=== PATIENT | male | born 1985 | race Caucasian/White ===

== ENCOUNTER 2023-07-22 08:38 | Outpatient (CLI) | payer OTHER, SELFPAY | END 2023-07-22 08:39 | disposition home or self-care (01) | LOC: NFLDREF 08:42 | PROVIDERS: PCP Internal Medicine; Visit Provider Internal Medicine | DX: R10.11 Right upper quadrant pain (principal) | CPT/HCPCS: 80053 ==

== ENCOUNTER 2023-08-11 09:54 | Outpatient (CLI) | payer OTHER, SELFPAY ==
--- NOTE | 2023-08-11 10:15 | CRLHL7_ITS ---
For Patients: As a result of the Century Cures Act, medical imaging exams and procedure reports are released immediately into your electronic medical record. You may view this report before your referring provider. If you have questions, please contact your health care provider. INDICATION: Unspecified abdominal pain TECHNIQUE: Ultrasound abdomen limited. Sonographic images of the right upper quadrant were obtained using lora-scale and color Doppler images. COMPARISON: None FINDINGS: Liver: Normal in size and echotexture. Several hyperechoic masses within the liver. Largest is in the right hepatic lobe and measures 3.6 cm in diameter. 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 However, the largest mass has a subtle hypoechoic halo on a couple of the images rendering it indeterminate. No intrahepatic bile duct dilation. Gallbladder: No stones or sludge. Normal wall thickness. No pericholecystic fluid. Common bile duct: 4 mm. Pancreas: Normal. Right kidney: Normal in size. Normal echotexture and cortex. No suspicious masses, stones, or hydronephrosis. Vasculature: Proximal abdominal aorta and IVC are normal. IMPRESSION: 1. Multiple echogenic masses in the liver, likely benign, however the largest is technically indeterminate. Liver MRI recommended. 2. No cause for abdominal pain identified. Dictated by Bruno Casey MD @ 08/12/2023 9:17:21 AM (Electronically Signed)
== END 2023-08-11 09:55 | disposition home or self-care (01) ==
LOC: US 09:54
PROVIDERS: PCP Internal Medicine; Visit Provider Internal Medicine
DX: R10.9 Unspecified abdominal pain (principal); R16.0 Hepatomegaly, not elsewhere classified
CPT/HCPCS: 76705

== ENCOUNTER 2023-08-27 07:03 | Outpatient (CLI) | payer OTHER, SELFPAY ==
--- NOTE | 2023-08-27 07:15 | CRLHL7_ITS ---
For Patients: As a result of the Century Cures Act, medical imaging exams and procedure reports are released immediately into your electronic medical record. You may view this report before your referring provider. If you have questions, please contact your health care provider. INDICATION: Liver lesions. COMPARISON: Abdominal ultrasound dated 11 August 2023. Technique : Abdominal MRI with T1 in and out of phase, T2, diffusion weighted, and progressively delayed post-contrast images. Intravenous gadolinium administered. Findings : Mild diffuse fatty infiltration of the liver. 3.5 cm lesion in the medial aspect of segment 5 and 2.6 cm lesion in the medial aspect of segment 7 of the liver shows discontiguous peripheral puddling of contrast with centripetal fill-in. A few other very small liver lesions have similar imaging characteristics. No focal abnormalities identified in the visualized portions of the liver, spleen, pancreas, adrenal glands, and kidneys. No hydronephrosis. No adenopathy. Impression : 1. Liver lesions meet imaging criteria for hemangiomas. No further evaluation is required. Dictated by Andrea Leon MD @ 08/29/2023 2:56:04 PM (Electronically Signed)
--- NOTE | 2023-08-27 09:00 | CRLHL7_ITS ---
For Patients: As a result of the Century Cures Act, medical imaging exams and procedure reports are released immediately into your electronic medical record. You may view this report before your referring provider. If you have questions, please contact your health care provider. Indication: Abdominal pain Technique: Nuclear medicine hepatobiliary scan with gallbladder ejection fraction after the intravenous administration of 5.1 millicuries technetium 99 M Mebrofenin and 2.3 micrograms of CCK. No symptoms after CCK. Comparison: Right upper quadrant ultrasound August 11, 2023 Findings: Normal hepatic extraction and excretion of the radiopharmaceutical with prompt appearance of the common bile duct followed by the gallbladder and small bowel. No enterogastric reflux. Good gallbladder contraction after CCK. Calculated gallbladder ejection fraction is 81 percent. Impression: Hyperkinetic gallbladder. Dictated by Galdino Segovia MD @ 08/27/2023 11:52:27 AM (Electronically Signed)
== END 2023-08-27 07:04 | disposition home or self-care (01) ==
LOC: MRI 07:04
PROVIDERS: PCP Internal Medicine; Visit Provider Internal Medicine
DX: K76.9 Liver disease, unspecified (principal); K76.0 Fatty (change of) liver, not elsewhere classified; R10.9 Unspecified abdominal pain
CPT/HCPCS: 74183; 78227; A9537; A9575; J2805

== ENCOUNTER 2023-09-28 06:22 | Outpatient (CLI) | payer OTHER, SELFPAY ==
--- NOTE | 2023-09-28 07:47 | W.ANESCHARGE ---
Anesthesia Charges Start Date/Time Anesthesia Start Date: 09/28/23 Anesthesia Start Time: 07:26 Stop Date/Time Anesthesia Stop Date: 09/28/23 Anesthesia Stop Time: 07:43
--- NOTE | 2023-09-28 08:51 | W.ANESCHARGE ---
Anesthesia Charges Start Date/Time Anesthesia Start Date: 09/28/23 Anesthesia Start Time: 07:26 Stop Date/Time Anesthesia Stop Date: 09/28/23 Anesthesia Stop Time: 07:43
== END 2023-09-28 06:23 | disposition home or self-care (01) ==
LOC: OP CLINIC 06:23
PROVIDERS: PCP Internal Medicine; Visit Provider Internal Medicine
DX: R10.13 Epigastric pain (principal)
CPT/HCPCS: 00731; 43239; 88305; J2704

== ENCOUNTER 2023-10-20 06:33 | Day surgery (SDC) | payer OTHER, SELFPAY ==
[2023-10-20] VITALS (13 sets, daily range): BP systolic 124–162; BP diastolic 77–107; PULSE 53–74; RESP 16–18; TEMP 36.1–36.4; O2SAT 93–97; BMI 32.2
[2023-10-20] MEDS: LACTATED RINGERS 1000 ML 1,000 ML 100 ML IV (06:55)
[2023-10-20] MEDS: SODIUM CHLORIDE 0.9 % (FLUSH) 10 ML SYRINGE IVF (06:55)
--- NOTE | 2023-10-20 07:06 | W.PM.H&PU ---
History & Physical Update History & Physical Update H&P Reviewed and patient assessed: No changes noted
[2023-10-20] MEDS: CEFAZOLIN 2 GM INJ IVP (07:41)
--- NOTE | 2023-10-20 08:05 | W.ANESCHARGE ---
Anesthesia Charges Start Date/Time Anesthesia Start Date: 10/20/23 Anesthesia Start Time: 07:24 Stop Date/Time Anesthesia Stop Date: 10/20/23 Anesthesia Stop Time: 08:33
[2023-10-20] MEDS: BUPIVACAINE 0.5% 30 ML INJECTION (08:15)
--- NOTE | 2023-10-20 08:25 | PM.GSPRC ---
Operative Note Date of procedure: 10/20/23 Pre-op diagnosis: Biliary dyskinesia Post-op diagnosis: Same Type of Procedure: Laparoscopic cholecystectomy Indications: Patient is a 38-year-old male who presented to clinic with abdominal pain. Please see consultation note for full workup and discussion regarding different treatment options. Risks and benefits of operative intervention were discussed at length with the patient. Risks included but was not limited to: Bleeding, infection, risk of damage to surrounding structures, possible need for additional procedures, possible need to convert to an open operation and postoperative complications such as pneumonia, pulmonary emboli or [place]. All questions and concerns were addressed with the patient agreeing to proceed. Procedure Description: After discussing the risks and benefits of the procedure, the patient signed informed consent.? The operative site was marked and the patient was brought to the operating room and placed on the operating table in supine position.? Care was taken to pad the patient's pressure points.?? The patient was then intubated by anesthesia.?? The operative site was then prepped and draped in the usual sterile fashion.? A time-out was then performed. Entrance to the abdomen was gained via a 5 mm Visiport in the left upper quadrant. The abdomen was insufflated and briefly surveyed for signs of injury. There was none. 11 mm umbilical port was placed as well as 2 working ports along the right costal margin. Patient was then placed in reverse Trendelenburg position with the right side up. The gallbladder fundus was grasped and retracted cephalad. Evidence of a hemangioma within the liver parenchyma. This was well away from the operative field. The infundibulum was grasped. A combination of hook cautery and blunt dissection was used to carefully dissect out the cystic duct and artery until they could clearly be seen entering the gallbladder without any intervening structures. The gallbladder was dissected off the cystic plate to achieve the critical view. Once this was achieved the cystic duct and artery were each clipped with 2 clips proximally and 1 clip distally and transected with the scissors. The gallbladder was then taken off of the liver bed and removed from the abdomen using an Endo-Catch bag. The gallbladder bed was surveyed for hemostasis, which was excellent. The umbilical port fascia was closed with 0 Vicryl via the Ant-Ewa. All other ports were removed under direct visualization. The skin was closed with absorbable subcuticular suture. Instrument sponge and needle counts were correct at the end of the case. The patient was then woken and transferred to the PACU in stable condition. Findings: Normal appearing gallbladder. Anesthesia: GETA Surgeon: Kamille Lao MD Estimated blood loss (mL): 5 Specimen: Gallbladder Condition: stable Disposition: PACU
[2023-10-20] MEDS: HYDROmorphone 0.5 mg/0.5 ml inj IVP (08:36)
[2023-10-20] MEDS: fentaNYL 100 MCG/2 ML inj 50 MCG IVP (08:53)
--- NOTE | 2023-10-20 09:12 | W.ANESCHARGE ---
Anesthesia Charges Start Date/Time Anesthesia Start Date: 10/20/23 Anesthesia Start Time: 07:24 Stop Date/Time Anesthesia Stop Date: 10/20/23 Anesthesia Stop Time: 08:33
[2023-10-20] MEDS: KETOROLAC 15 MG/ML inj IVP (09:15)
[2023-10-20] MEDS: HYDROCODONE-ACETAMIN 5-325 MG 1 TAB PO (09:16)
== END 2023-10-20 10:37 | disposition home or self-care (01) ==
PROVIDERS: PCP Internal Medicine; Visit Provider Surgery
PROC: 0FT44ZZ Resection of Gallbladder, Percutaneous Endoscopic Approach (ICD-10-PCS; CPT 47562; principal; 2023-10-20 07:45)
DX: K82.8 Other specified diseases of gallbladder (principal); K81.1 Chronic cholecystitis; R10.9 Unspecified abdominal pain
CPT/HCPCS: 47562; 00790; 88304; A9270; J0330; J0665; J0690; J1100; J1170; J1885; J2250; J2405; J2704; J3010; J3490; J7120

== ENCOUNTER 2023-11-20 07:09 | Day surgery (SDC) | payer OTHER, SELFPAY ==
[2023-11-20 07:18] VITALS: BP 132/83; PULSE 77; RESP 18; TEMP 37.4; O2SAT 97; BMI 30.8
--- NOTE | 2023-11-20 07:54 | CRLHL7_ITS ---
For Patients: As a result of the Century Cures Act, medical imaging exams and procedure reports are released immediately into your electronic medical record. You may view this report before your referring provider. If you have questions, please contact your health care provider. INDICATION: Right tonsillar swelling TECHNIQUE: CT soft tissue of the neck was acquired with 90 cc Isovue 370 intravenous contrast. COMPARISON: None FINDINGS: Calcification in the tonsillar pillars bilaterally with rim enhancing right retro/peritonsillar collection measuring 2.0 x 1.4 x 1.5 centimeters in AP, transverse and craniocaudal dimensions. Trace adjacent fluid in the right peritonsillar space. Associated mild oropharyngeal narrowing. Orbits unremarkable. Paranasal sinuses are clear. Parotid and submandibular glands are within normal limits. Right jugular lymph nodes measure up to 14 millimeters in short axis, likely reactive. Sublingual space unremarkable. Vocal cords unremarkable. Thyroid gland unremarkable. Lung apices clear. IMPRESSION: Tonsillar enlargement consistent with tonsillitis with right peritonsillar abscess measuring up to 2.0 x 1.4 x 1.5 centimeters. Please note that all CT scans at this facility use dose modulation, iterative reconstruction, and/or weight-based dosing when appropriate to reduce radiation dose to as low as reasonably achievable. Dictated by Manish Zepeda MD @ 11/20/2023 8:58:32 AM (Electronically Signed)
--- NOTE | 2023-11-20 08:03 | ED.GENADULT ---
HPI - General Adult General Chief complaint: Ear/Nose/Throat Problem Stated complaint: throat swelling Time Seen by Provider: 11/20/23 07:48 History of Present Illness HPI narrative: This 38-year-old male comes in with worsening sore throat. He was started on amoxicillin 3 days ago but states that his symptoms have worsened. He has swelling of his right tonsil and states that it has become more difficult to open his mouth. He does not have any muffled voice. He did have some chills but did not measure a fever. Related Data Home Medications ?Medication ?Instructions ?Recorded ?Confirmed amoxicillin 500 mg capsule 500 mg PO BID 11/20/23 11/20/23 Allergies Allergy/AdvReac Type Severity Reaction Status Date / Time No Known Drug Allergies Allergy Verified 11/20/23 07:17 Review of Systems Status of ROS: Reports: 10 or more systems reviewed and unremarkable except as noted in History and below Narrative: Constitutional: No fevers, no weight gain or loss. Eyes: No discharge. No vision changes. HENT: Sore throat as described above. Cardiovascular: No chest pain, no palpitations. Respiratory: No shortness of breath, no wheezes, no cough. Gastrointestinal: No abdominal pain, no vomiting, no diarrhea. Genitourinary: No dysuria, no hematuria. Musculoskeletal: Normal range of motion. Skin: No rashes, no pruritis. Neurological: No dizziness, weakness, sensory change, speech change. Endo/Heme/Allergies: No bruising or bleeding. No polydipsia. Pysch: no suicidality, no anxiety, no insomnia. All other systems reviewed and are negative. [facility] Medical History (Updated 11/20/23 @ 09:41 by Junito Bruce MD) Rotator cuff insufficiency of left shoulder ?M25.312 - Other instability, left shoulder (ICD-10) Cervical spine pain ?M54.2 - Cervicalgia (ICD-10) Liver lesion ?K76.9 - Liver disease, unspecified (ICD-10) Abdominal pain ?R10.9 - Unspecified abdominal pain (ICD-10) Infection due to severe acute respiratory syndrome coronavirus 2 (SARS-CoV-2) ?U07.1 - COVID-19 (ICD-10) Surgical History (Updated 08/14/22 @ 09:02 by Humza Almendarez) History of vasectomy ?Z98.52 - Vasectomy status (ICD-10) Family History (Updated 08/14/22 @ 09:01 by Humza Almendarez) Other Diabetes Social History (Updated 07/22/23 @ 08:48 by Destiny Downey ~ [facility]) What is your current living situation?: I presently have a place to live Problems where you live: no known problems In the past 12 months, utilities in danger of being shut off: no In past 12 months, lack of transportation kept you from medical appts, meetings, work, or getting things needed for daily living: no In the past 12 mos, have been you worried that your food would run out before you had money to buy more?: never true In the past 12 mos, the food you bought just didn't last and you didn't have money to buy more?: never true Smoking Status: Former smoker What tobacco products do you use: cigarettes Smoking quit date/years: <= 15 years ago Nicotine containing products detail: quit smoking 10 years ago, quit Chew 1 year ago How often do you have a drink containing alcohol: 2-4 times a month How many standard drinks containing alcohol do you have on a typical day: 1 or 2 How often do you have six or more drinks on one occasion: Never AUDIT-C Alcohol total score: 2 Non-prescribed substance use: marijuana (any form) Non-prescribed substance use details: THC gummies occasionally Caffeine: Yes (2 coffee/day 1 pop/day) How often does anyone, including family, friends and others, physically hurt you: never How often does anyone, including family, friends and others, insult or talk down to you: never How often does anyone, including family, friends and others, threaten you with harm: never How often does anyone, including family, friends and others, scream or curse at you: never Exam Narrative: Exam Narrative: Constitutional: Well-developed, well-nourished, no acute distress. HEENT: Normocephalic, atraumatic. Oropharynx shows erythema with unilateral swelling of the right tonsil. Neck: Normal range of motion. Nontender. Supple. Heart: Regular. No murmurs. Normal rate. Intact distal pulses. Lungs: Clear to auscultation. No chest discomfort. No wheezes, rhonchi, or rales. Abdomen: Normal bowel sounds. Nontender. No rebound tenderness. Genitalia: Deferred. Back: No midline tenderness. Normal range of motion. Extremities: Normal range of motion. No injury. Skin: Intact. No rash. Warm. No erythema or pallor. Neurologic: No altered sensation. No weakness. Alert and oriented. Psychiatric: No suicidality. No anxiety or depression. No insomnia. Nursing notes and vitals signs are reviewed. Const: Vital Signs, click to edit/add: Vital Signs - 24 hr 11/20/23 07:18 Temperature 99.3 F Pulse Rate [Femora l] 77 Respiratory Rate 18 Blood Pressure [Ri t Upper Arm] 132/83 Pulse Oximetry 97 Oxygen Delivery Me thod Room Air Course Vital Signs Vital signs: Initial Vital Signs Temperature 99.3 F 11/20/23 07:18 Temperature Source Temporal Artery Scan 11/20/23 07:18 Pulse Rate 77 11/20/23 07:18 Pulse Rhythm Regular 11/20/23 07:18 Respiratory Rate 18 11/20/23 07:18 Blood Pressure 132/83 11/20/23 07:18 Blood Pressure Mean 99 11/20/23 07:18 Blood Pressure Position Sitting 11/20/23 07:18 Pulse Oximetry 97 11/20/23 07:18 Oxygen Delivery Method Room Air 11/20/23 07:18 Vital Signs Temperature 99.3 F 11/20/23 07:18 Pulse Rate 77 11/20/23 07:18 Respiratory Rate 18 11/20/23 07:18 Blood Pressure 132/83 11/20/23 07:18 Pulse Oximetry 97 11/20/23 07:18 Oxygen Delivery Method Room Air 11/20/23 07:18 Temperature 99.3 F 11/20/23 07:18 Pulse Rate 77 11/20/23 07:18 Respiratory Rate 18 11/20/23 07:18 Blood Pressure 132/83 11/20/23 07:18 Pulse Oximetry 97 11/20/23 07:18 Oxygen Delivery Method Room Air 11/20/23 07:18 Medications Administered Medications: Discontinued Medications Generic Name Dose Route Start Last Admin Trade Name Freq PRN Reason Stop Dose Admin Dexamethasone 10 mg 11/20/23 07:55 11/20/23 08:12 Dexamethasone 4 Mg/Ml Vial IV 11/20/23 07:56 10 mg ONCE ONE Administration Ketorolac Tromethamine 30 mg 11/20/23 07:53 11/20/23 08:12 Ketorolac 30 Mg/Ml Inj IVP 11/20/23 07:54 30 mg ONCE ONE Administration Medical Decision Making MDM Narrative Medical decision making narrative: This patient comes in with worsening throat pain with swelling in the right tonsil. CT imaging shows evidence of a abscess measuring 2 x 1.5 cm. I did speak with the ear nose and throat physician on-call, Dr. Haynes, who will bring him to the OR for drainage of the abscess. The patient received IV doses of Toradol 30 mg, dexamethasone 10 mg, and Unasyn 3 g. Lab Data Labs: Lab Results 11/20/23 Range/Units 08:04 WBC 9.15 (4.50-11.00) K/uL RBC 4.79 (4.30-5.90) m/uL Hgb 14.3 (13.5-17.5) gm/dL Hct 42.6 (37.0-53.0) % MCV 89 (80-100) fL MCH 30 (26-34) pg MCHC 34 (32-36) gm/dL RDW Coeff of Zia 12.0 (11.5-15.5) % Plt Count 217 (140-440) K/uL Neut % (Auto) 75.0 H (42.0-72.0) % Lymph % (Auto) 18.0 L (20-44) % Josephine % (Auto) 6.4 (0.0-11.0) % Eos % (Auto) 0.3 (0.0-7.0) % Baso % (Auto) 0.2 (0.0-3.0) % Neut # (Auto) 6.90 (1.7-7.0) K/uL Lymph # (Auto) 1.60 (0.90-2.90) K/uL Josephine # (Auto) 0.60 (0.00-0.90) K/UL Eos # (Auto) 0.03 (0.00-0.50) K/uL Baso # (Auto) 0.02 (0.00-0.30) K/uL Abs Immat Gran (auto) 0.01 (0.00-0.30) K/uL Imm/Tot Granulo (auto) 0.1 % Imaging Data CT Soft tissue Neck: Radiologist's impression: Tonsillar enlargement consistent with tonsillitis with right peritonsillar abscess measuring up to 2.0 x 1.4 x 1.5 centimeters. Discharge Plan Discharge Clinical Impression: Tonsillar abscess Patient Disposition: XFER to OR Condition: Unchanged Prescriptions: No Action amoxicillin 500 mg capsule 500 mg PO BID Follow Up/Referrals: Calderon Adams MD [Primary Care Provider] -
[2023-11-20 08:11] LABS: Basophils Absolute Auto 0.02 K/uL (0.00-0.30); Basophils Percent Auto 0.2 % (0.0-3.0); Eosinophils Absolute Auto 0.03 K/uL (0.00-0.50); Eosinophils Percent Auto 0.3 % (0.0-7.0); Hematocrit 42.6 % (37.0-53.0); Hemoglobin* 14.3 gm/dL (13.5-17.5); Immature Granulocytes Abs Auto 0.01 K/uL (0.00-0.30); Immature Granulocytes Pct Auto 0.1 %; Mean Corpuscular HGB Conc 34 gm/dL (32-36); Mean Corpuscular Hemoglobin 30 pg (26-34); Mean Corpuscular Volume 89 fL (80-100); Monocytes Percent Auto 6.4 % (0.0-11.0); Platelet Count* 217 K/uL (140-440); Red Blood Count 4.79 m/uL (4.30-5.90); White Blood Count* 9.15 K/uL (4.50-11.00)
[2023-11-20] MEDS: KETOROLAC 30 MG/ML inj IVP (08:12)
[2023-11-20] MEDS: dexAMETHasone 4 MG/ML VIAL 10 MG IV (08:12)
[2023-11-20 08:18] LABS: Slide Review Reflex No
[2023-11-20 09:42] VITALS: BP 132/91; PULSE 81; RESP 18; O2SAT 95
[2023-11-20] MEDS: AMPICILLIN/SULBACTAM 3 GM in 0.9 % SODIUM CHLORIDE Mini-bag 100 ML IVPB (09:53)
--- NOTE | 2023-11-20 10:35 | P.ENTCN_ITS ---
HPI- ENT Consult Date of Consult Date Seen: 11/20/23 Consult date: 11/20/23 Primary Care Provider: Calderon Adams MD Consult Narrative Reason for consult: Right peritonsillar abscess Narrative: Ney Banuelos is a 38 year old male sore throat beginning Thursday localized right side with associated trismus. This morning he woke up feeling like he was going to he was short of breath when lying flat. CT was obtained shows a large right peritonsillar abscess as well as cellulitis of the palate and hypopharynx. I reviewed the scan images [facility] Medical History (Updated 11/20/23 @ 09:41 by Junito Bruce MD) Rotator cuff insufficiency of left shoulder ?M25.312 - Other instability, left shoulder (ICD-10) Cervical spine pain ?M54.2 - Cervicalgia (ICD-10) Liver lesion ?K76.9 - Liver disease, unspecified (ICD-10) Abdominal pain ?R10.9 - Unspecified abdominal pain (ICD-10) Infection due to severe acute respiratory syndrome coronavirus 2 (SARS-CoV-2) ?U07.1 - COVID-19 (ICD-10) Surgical History (Updated 08/14/22 @ 09:02 by Humza Almendarez) History of vasectomy ?Z98.52 - Vasectomy status (ICD-10) Family History (Updated 08/14/22 @ 09:01 by Humza Almendarez) Other Diabetes Social History (Updated 07/22/23 @ 08:48 by Destiny Downey ~ [facility]) What is your current living situation?: I presently have a place to live Problems where you live: no known problems In the past 12 months, utilities in danger of being shut off: no In past 12 months, lack of transportation kept you from medical appts, meetings, work, or getting things needed for daily living: no In the past 12 mos, have been you worried that your food would run out before you had money to buy more?: never true In the past 12 mos, the food you bought just didn't last and you didn't have money to buy more?: never true Smoking Status: Former smoker What tobacco products do you use: cigarettes Smoking quit date/years: <= 15 years ago Nicotine containing products detail: quit smoking 10 years ago, quit Chew 1 year ago How often do you have a drink containing alcohol: 2-4 times a month How many standard drinks containing alcohol do you have on a typical day: 1 or 2 How often do you have six or more drinks on one occasion: Never AUDIT-C Alcohol total score: 2 Non-prescribed substance use: marijuana (any form) Non-prescribed substance use details: THC gummies occasionally Caffeine: Yes (2 coffee/day 1 pop/day) How often does anyone, including family, friends and others, physically hurt you : never How often does anyone, including family, friends and others, insult or talk down to you: never How often does anyone, including family, friends and others, threaten you with harm: never How often does anyone, including family, friends and others, scream or curse at you: never Meds Home Medications and Allergies Allergies Allergy/AdvReac Type Severity Reaction Status Date / Time No Known Drug Allergies Allergy Verified 11/20/23 07:17 Exam Narrative: Exam Narrative: General skin neuro respiratory gait peripheral vascular vocal quality skin of head neck are all negative except muffled voice trismus bulge right peritonsillar space lower airway adequate for intubation Const: Vital Signs, click to edit/add: Vital Signs - 24 hr 11/20/23 07:18 11/20/23 09:42 Temperature 99.3 F Pulse Rate [Femora l] 77 81 Respiratory Rate 18 18 Blood Pressure [Ri ght Upper Arm] 132/83 132/91 H Pulse Oximetry 97 95 Oxygen Delivery Me thod Room Air Room Air ENT-CN: Result Labs Labs: Short CBC 11/20/23 Range/Units 08:04 WBC 9.15 (4.50-11.00) K/uL Hgb 14.3 (13.5-17.5) gm/dL Hct 42.6 (37.0-53.0) % Plt Count 217 (140-440) K/uL Assessment and Plan Assessment and plan (1) Tonsillar abscess: Status: Acute Plan Right peritonsillar abscess with associated palate and hypo pharyngeal cellulitis extending down to just above the glottic opening. Discussed options with him would favor incision and drainage may and may not have to leave intubated. Risks include anesthesia bleeding recurrence etc. he understands and agrees and wishes to proceed.
--- NOTE | 2023-11-20 10:57 | W.PM.ENTPROC ---
Procedure Note Date of procedure: 11/20/23 Procedure: Preoperative diagnosis right peritonsillar abscess with pharyngeal and hypopharyngeal cellulitis Postoperative diagnosis same Procedure direct laryngoscopy with glide scope, incision drainage right peritonsillar abscess, amputation tip of uvula for decompression Under general endotracheal anesthesia patient was prepped and draped usual fashion. Was not difficult to establish an airway but as the glide scope was passed was the apparent that there was significant hypo pharyngeal edema and even a small amount of edema of the epiglottis. The arytenoids and cords were normal. After intubation table was turned the patient prepped and draped. The McIvor mouth gag was inserted the tongue retracted forward. A needlepoint cautery was used to make an incision above the right tonsil anteriorly. Blunt dissection was then used to enter the abscess cavity which was immediately beneath this. A large amount of pus was removed with suction. This was cultured. The cavity was abscess cavity was irrigated copiously. Bleeding from the mucosal edges was cauterized with suction cautery. The patient procedure well. Because of the amount of edema noted on intubation we elected to leave the patient intubated and transfer to a higher level of care. Blood loss during procedure was 15 mL. Surgeon: Dao Russ MD
--- NOTE | 2023-11-20 11:18 | W.ANESCHARGE ---
Anesthesia Charges Start Date/Time Anesthesia Start Date: 11/20/23 Anesthesia Start Time: 09:58 Stop Date/Time Anesthesia Stop Date: 11/20/23 Anesthesia Stop Time: 11:54 Summary Emergency: MDA
--- NOTE | 2023-11-20 11:54 | SUR.OPER ---
patient transfered via [facility]. Report given to registered nurse and ems with [facility] by switchboard installer. WOODWORK TEACHER spoke with [facility] where patient is being transferred to and gave patient report.
--- NOTE | 2023-11-20 12:03 | W.ANESCHARGE ---
Anesthesia Charges Start Date/Time Anesthesia Start Date: 11/20/23 Anesthesia Start Time: 09:58 Stop Date/Time Anesthesia Stop Date: 11/20/23 Anesthesia Stop Time: 11:54 Summary Emergency: TRANSFER AND LINE UP WORKER
== END 2023-11-20 10:58 | disposition home or self-care (01) ==
LOC: ED 09:41 → SS 09:58
PROVIDERS: Emergency Provider Emergency Medicine Emergency Medical Services; PCP Internal Medicine; Visit Provider Otolaryngology
PROC: 0C9PXZZ Drainage of Tonsils, External Approach (ICD-10-PCS; CPT 42700; principal; 2023-11-20 10:45)
DX: J36 Peritonsillar abscess (principal); J39.1 Other abscess of pharynx; J38.4 Edema of larynx; Z87.891 Personal history of nicotine dependence; R06.02 Shortness of breath; B96.89 Other specified bacterial agents as the cause of diseases classified elsewhere
CPT/HCPCS: 31526; 42700; 42140; 00170; 36415; 70491; 85025; 87070; 87075; 87076; 87205; 99140; 99284; J0295; J1100; J1885; J2250; J2405; J2704; J3010; Q9967

== ENCOUNTER 2023-11-26 14:39 | Outpatient (CLI) | payer OTHER, SELFPAY | END 2023-11-26 14:40 | disposition home or self-care (01) | LOC: NFLDREF 14:40 | PROVIDERS: PCP Internal Medicine; Visit Provider Internal Medicine | DX: J36 Peritonsillar abscess (principal) | CPT/HCPCS: 80048 ==

== ENCOUNTER 2024-01-22 07:08 | Day surgery (SDC) | payer OTHER, SELFPAY ==
[2024-01-22] VITALS (14 sets, daily range): BP systolic 124–151; BP diastolic 81–105; PULSE 60–72; RESP 15–16; TEMP 36.3–36.6; O2SAT 95–100; BMI 31.3
[2024-01-22] MEDS: 0.9 % SODIUM CHLORIDE 500 ML 500 ML 100 ML IV (07:40)
[2024-01-22] MEDS: SODIUM CHLORIDE 0.9 % (FLUSH) 10 ML SYRINGE IVF (07:40)
--- NOTE | 2024-01-22 08:57 | W.ANESCHARGE ---
Anesthesia Charges Start Date/Time Anesthesia Start Date: 01/22/24 Anesthesia Start Time: 08:22 Stop Date/Time Anesthesia Stop Date: 01/22/24 Anesthesia Stop Time: 08:58
[2024-01-22] MEDS: fentaNYL 100 MCG/2 ML inj 50 MCG IVP (09:14)
[2024-01-22] MEDS: HYDROmorphone 0.5 mg/0.5 ml inj IVP (09:19)
[2024-01-22] MEDS: ACETAMINOPHEN 160 MG/5 ML CUP 320 MG PO (09:38)
[2024-01-22] MEDS: IBUPROFEN 100 MG/5 ML SUSP 200 MG PO (09:38)
[2024-01-22] MEDS: OXYCODONE 1 MG/ML ORAL SOLN 5 MG PO (10:36)
--- NOTE | 2024-01-22 10:39 | W.ANESCHARGE ---
Anesthesia Charges Start Date/Time Anesthesia Start Date: 01/22/24 Anesthesia Start Time: 08:22 Stop Date/Time Anesthesia Stop Date: 01/22/24 Anesthesia Stop Time: 08:58
--- NOTE | 2024-01-22 11:00 | W.PM.ENTPROC ---
Procedure Note Date of procedure: 01/22/24 Procedure: Preoperative diagnosis chronic tonsillitis, adenotonsillar hypertrophy, upper airway obstruction, history of peritonsillar abscess requiring intubation prolonged Postoperative diagnosis same Procedure tonsillectomy Under general endotracheal anesthesia the patient was prepped and draped in usual fashion. The McIvor mouth gag was inserted the tongue retracted forward. No submucous cleft was noted on inspection or palpation. The right and left tonsils were removed with a combination of needlepoint cautery, bipolar cautery and suction cautery. There was a large amount of scar tissue in the region of the right peritonsillar abscess incision. Meticulous hemostasis was achieved. The patient was extubated in the operating room taken recovery in satisfactory condition. Blood loss was less than 10 mL. Surgeon: Dao Russ MD
== END 2024-01-22 11:05 | disposition home or self-care (01) ==
LOC: OR 07:09
PROVIDERS: PCP Internal Medicine; Visit Provider Otolaryngology
PROC: (CPT 42826; principal; 2024-01-22 08:15)
DX: J35.01 Chronic tonsillitis (principal); J35.3 Hypertrophy of tonsils with hypertrophy of adenoids
CPT/HCPCS: 42826; 00170; 88304; A9270; J0330; J1100; J1171; J2250; J2405; J2704; J3010; J3490; J7030

== ENCOUNTER 2024-03-16 16:36 | Outpatient (CLI) | payer OTHER, SELFPAY ==
--- NOTE | 2024-03-23 08:33 | W.PM.SLEEP ---
Sleep Study Details Details Interpreting Provider: Jeb Date of Sleep Study: 03/16/24 Sleep Study Details: STUDY TYPE:? Home unattended ? BMI:? Not recorded ORDERING PROVIDER:? Jeb INDICATION:? Concern about sleep apnea ? SLEEP SUMMARY:? 499 minutes monitored RESPIRATORY SUMMARY:? AHI 5.3 Low oxygen 88 0.4% of study oxygen less than 90% Snoring 91.7% PERIODIC LIMB MOVEMENTS OF SLEEP:? Not recorded CARDIAC:? Range 44-99, mean 58.9 IMPRESSION:? Mild obstructive sleep apnea RECOMMENDATION: If symptomatic treatment options include CPAP, dental appliance and/or airway expansion surgery.
== END 2024-03-16 16:37 | disposition home or self-care (01) ==
LOC: SLEEP 16:39
PROVIDERS: PCP Internal Medicine; Visit Provider Otolaryngology
DX: G47.33 Obstructive sleep apnea (adult) (pediatric) (principal)
CPT/HCPCS: 95806

== ENCOUNTER 2024-09-26 18:03 | Emergency (ER) | payer OTHER, SELFPAY ==
--- OUTSIDE RECORDS SUMMARY | 2024-08-30 10:15 | XMS_ITS | Encounter Summary ---
Author Organization [employer] Address [address], [place] [address] Care Team Providers Care Psychiatric Registered Nurse Name Role Phone Unavailable Primary Care Provider Unavailabl e Reason for Visit * Reason Comments QUESTIONS, GENERAL Entered automaticall y based on patient selection in Care-n-Share. Encounter Details Date Type Department Care Team (Late st Contact Info) Description 08/30/2024 10:15 AM CDT [facility] [address] [place] [address] Donna Finley, NUCLEAR PROCESS ENGINEER, DIMENSIONAL INSPECTOR [address] [place] [address] Chief Comp: QUESTIONS, GENERAL Social History Tobacco Use Types Packs/Day Years Used Date Smoking Tobacco: Never Assessed Sex and Gender Information Value Date Recorded Sex Assigned at Not on file Legal Sex Male 9:15 PM CDT Gender Identity Not on file Sexual Orientation Not on file documented as of this encounter Nursing Notes * Lesley Hylton CMA - 08/31/2024 1:26 PM CDT Pt was called and his girlfriend answered and scheduled the phone visit for 09/15 @ 3:10pm. documented in this encounter Plan of Treatment Not on file documented as of this encounter Visit Diagnoses Not on filedocumented in this encounter
--- OUTSIDE RECORDS SUMMARY | 2024-09-26 18:05 | XMS_ITS | Clinical Summary ---
Author Organization [facility] Address [address] [place] [address] Care Team Providers Care Product Assembler Name Role Phone Unavailable Primary Care Provider Unavailabl e Source Comments You are receiving this document as you are listed as the primary care provider,follow-up provider, or the patient has been referred to you for consultation.This is in compliance with the Medicare and[facility] EHR Incentive Program,which states Providers who transition their patient to another setting of careor provider of care or refers their patient to another provider of care shouldprovide summary care record for each transition of care or referral. [facility] [employer] Allergies No known active allergies Medications methylPREDNISol one (MEDROL 21 TABLET DOSEPACK) 4 MG tablet Take as directed. 21 Tablet 3 Active Additional Information Patient not taking.Reported on 08/04/2024 tiZANidine (ZANAFLEX) 4 MG tablet Take 0.5-1 Tablets (2-4 mg) by mouth two times daily as needed. 30 Tablet 1 3 Active Additional Information Patient not taking.Reported on 08/04/2024 eszopiclone (LUNESTA) 2 MG tablet Take 1 Tablet (2 mg) by mouth at bedtime as needed. 5 Active Active Problems No known active problems Encounters Date Type Department Care Team Description 08/30/2024 10:15 AM CDT E-Visit [facility] [address] [place] [address] Donna Finley, INTERNAL SPECIALIST, CARE TRANSITIONS NURSE Chief Comp: QUESTIONS, GENERAL 08/04/2024 7:30 AM CDT Treatment [facility] [address] [place] [address] Donna Finley APRN, CNP Meyer, Gabrielle R, DO Cervical radiculopathy (Primary Dx); Neck pain; Cervical disc herniation (HRC); Foraminal stenosis of cervical region; DDD (degenerative disc disease), cervical (HRC) 07/14/2024 9:20 AM CDT Office Visit [facility] [address] [place] [address] Donna Finley APRN, CNP Neck pain (Primary Dx); Cervical disc herniation (HRC); Lumbar pain; Foraminal stenosis of cervical region; DDD (degenerative disc disease), cervical (HRC); Cervical radiculopathy; Spondylolisthesis of lumbar region; Lumbar radiculopathy 06/28/2024 Telephone [facility] [address] [place] [address] Donna Finley APRN, CNP Orders Needed from Last 3 Months Social History Tobacco Use Types Packs/Day Years Used Date Smoking Tobacco: Never Assessed Sex and Gender Information Value Date Recorded Sex Assigned at Not on file Legal Sex Male 9:15 PM CDT Gender Identity Not on file Sexual Orientation Not on file Last Filed Vital Signs Vital Sign Reading Time Taken Comments Blood Pressure 119/79 08/04/2024 7:21 AM CDT Pulse 62 08/04/2024 7:21 AM CDT Temperature - - Respiratory Rate 16 11/03/2022 2:27 PM CDT Oxygen Saturation - - Inhaled Oxygen Concentration - - Weight - - Height - - Body Mass Index - - Plan of Treatment Health Maintenance Due Date Last Done Comments Hep C Screening (Preventive Services) 1985 HIV Screening (Preventive Services) 2001 Adult Preventive Visit 04/26/2003 HepB Vaccine (1) 2004 DTaP/Tdap/Td Vaccine (2 - Tdap) 04/17/2020 04/17/2010 Cholesterol 2020 COVID-19 Vaccine ( season) 2023 06/19/2021 Influenza Vaccine (#1) 2024 9, 11/22/2015, 01/05/2014, Additional history exists Zoster/Shingles Vaccine (1 of 2) 04/26/2035 HPV Vaccine Aged Out No longer eligi ble based on patient's age to complete this topic HepA Vaccine Aged Out No longer eligi ble based on patient's age to complete this topic Hib Vaccine Aged Out No longer eligi ble based on patient's age to complete this topic IPV (Polio) Vaccine Aged Out No longe r eligible based on patient's age to complete this topic MCV4 Vaccine Aged Out No longer eligi ble based on patient's age to complete this topic Meningococcal B Vaccine Aged Out No l onger eligible based on patient's age to complete this topic Pneumococcal Vaccine Aged Out No long er eligible based on patient's age to complete this topic Procedures Procedure Name Priority Date/Time Associated Diagnosis Comments FL SPINAL INJECTION FOR PAIN MANAGEMENT Routine 08/04/2024 7:53 AM CDT Neck pain Cervical disc herniation (HRC) Foraminal stenosis of cervical region DDD (degenerative disc disease), cervical (HRC) Cervical radiculopathy from Last 3 Months Results * FL Spinal Injection For Pain Management (08/04/2024 7:53 AM CDT) Anatomical Region Laterality Modality Spine, L-Spine, T-Spine, C-Spine Radiographic Imaging Narrative 08/04/2024 7:58 AM CDT These images were obtained during a surgical procedure. us Donna Finley APRN, CARE TRANSITIONS NURSE RAD FL Final Result from Last 3 Months Insurance FULLY INSURED
--- OUTSIDE RECORDS SUMMARY | 2024-09-26 18:05 | XMS_ITS | Encounter Summary ---
Author Organization [email or web address] Address [address] [address] Care Team Providers Care Information Systems Security Analyst Name Role Phone Unavailable Primary Care Provider Unavailabl e Reason for Visit * Reason Comments Orders Needed Encounter Details Date Type Department Care Team (Late st Contact Info) Description 06/28/2024 Telephone [facility] [address] [place] [address] Donna Finley, GUI DEVELOPER, WEAVING PROFESSOR [address] [place], [place] [phone] Orders Needed Social History Tobacco Use Types Packs/Day Years Used Date Smoking Tobacco: Never Assessed Sex and Gender Information Value Date Recorded Sex Assigned at Not on file Legal Sex Male 9:15 PM CDT Gender Identity Not on file Sexual Orientation Not on file documented as of this encounter Nursing Notes * Corrina Verde RN - 06/28/2024 1:55 PM CDT Call to [facility]. Advised appt is needed, appt scheduled. * Nyla Bautista - 06/28/2024 1:01 PM CDT ORDERS / REFERRAL What referral/order are you requesting: FL injection Why is the referral/order needed: Pt request. Tila Pt S/O mentioned if a MRI is required could they be scheduled on the same day. It is hard to get Pt into the Dr. Where would you like the order/referral sent to: [facility] What is their fax number: na If we are unable to reach you can we leave a detailed message on your voicemail? Yes If we are unable to reach you can we send you a message in [employer]? No [Insurance Adjustor/Windows Deployment Technician: Relay to patient; We make every effort to get back to you sameday, however it may take 1-2 business days depending on the nature of the communication.] [Insurance Adjustor/Windows Deployment Technician: Please inform the patient that a referral/order does not guarantee insurance coverage. Patients should call the member services number on the back of their insurance ID card to understand what coverage for the services they are requesting.] documented in this encounter Plan of Treatment Not on file documented as of this encounter Visit Diagnoses Not on filedocumented in this encounter
[2024-09-26 18:37] VITALS: BP 131/84; PULSE 88; RESP 20; TEMP 37.3; O2SAT 96; BMI 31.3
[2024-09-26 19:26] LABS: PCR FLU A Negative PCR FLU A (Negative); PCR FLU B Negative PCR FLU B (Negative); PCR RSV Negative PCR RSV (Negative); SARS PCR* POSITIVE SARS-CoV-2 (Negative)
--- NOTE | 2024-09-26 20:30 | ED_ITS ---
HPI - General Adult General Chief complaint: Nausea/Vomiting Stated complaint: tightness in chest/shortness of breath Time Seen by Provider: 09/26/24 20:29 History of Present Illness HPI narrative: Patient's children and significant other have been sick. Pt symptoms ongoing since thursday. Pt has dry cough, nausea, vomiting. Pt's Aura ring has shown a fever at home. -Date of Onset of Symptoms 39-year-old man presenting to the emergency department with concern body aches dry cough fever. Has had nausea in vomiting along with diarrhea as well. Third day of illness. Temperature measured up to 101. Admittedly overall is improved now. No rashes. Here with life partner who has also been ill. Children have been sick too. He is having a little bit of abdominal discomfort or pain which he would associate with the prior vomiting. Related Data Previous Rx's ?Medication ?Instructions ?Recorded eszopiclone 2 mg tablet (Lunesta) 2 mg PO QHS #90 tabs 03/29/24 Allergies Allergy/AdvReac Type Severity Reaction Status Date / Time No Known Drug Allergies Allergy Verified 03/30/24 13:20 Review of Systems Status of ROS: Reports: 6 or more systems reviewed and unremarkable except as noted in History and below [facility] Medical History Skin lesion ?L98.9 - Disorder of the skin and subcutaneous tissue, unspecified (ICD-10) Insomnia ?G47.00 - Insomnia, unspecified (ICD-10) Chronic tension headaches ?G44.229 - Chronic tension-type headache, not intractable (ICD-10) Rotator cuff insufficiency of left shoulder ?M25.312 - Other instability, left shoulder (ICD-10) Cervical spine pain ?M54.2 - Cervicalgia (ICD-10) Liver lesion ?K76.9 - Liver disease, unspecified (ICD-10) Surgical History History of peritonsillar abscess drainage ?Z98.890 - Other specified postprocedural states (ICD-10) Status post cholecystectomy (10/20/23) ?Z90.49 - Acquired absence of other specified parts of digestive tract (ICD- 10) History of removal of skin mole (10/04/10) ?Z98.890 - Other specified postprocedural states (ICD-10) ?Z87.2 - Personal history of diseases of the skin and subcutaneous tissue (ICD-10) History of vasectomy ?Z98.52 - Vasectomy status (ICD-10) Family History Other Diabetes Social History What is your current living situation?: I presently have a place to live Problems where you live: no known problems In the past 12 months, utilities in danger of being shut off: no In past 12 months, lack of transportation kept you from medical appts, meetings, work, or getting things needed for daily living: no In the past 12 mos, have been you worried that your food would run out before you had money to buy more?: never true In the past 12 mos, the food you bought just didn't last and you didn't have money to buy more?: never true Smoking Status: Former smoker What tobacco products do you use: cigarettes Smoking quit date/years: <= 15 years ago Do you use any of these nicotine containing products: None Nicotine containing products detail: quit smoking 10 years ago, quit Chew 1 year ago How often do you have a drink containing alcohol: 2-4 times a month Alcohol type: beer and hard liquor How many standard drinks containing alcohol do you have on a typical day: 1 or 2 How often do you have six or more drinks on one occasion: Never AUDIT-C Alcohol total score: 2 Non-prescribed substance use: marijuana (any form) Non-prescribed substance use details: THC gummies occasionally Caffeine: Yes (2 coffee/day 1 pop/day) How often does anyone, including family, friends and others, physically hurt you : never How often does anyone, including family, friends and others, insult or talk down to you: never How often does anyone, including family, friends and others, threaten you with harm: never How often does anyone, including family, friends and others, scream or curse at you: never service: No Exam Narrative: Exam Narrative: Pleasant. NAD. Tall. Breathing easily. Lungs are clear. Heart in regular rate and rhythm without murmur rub or gallop. Oropharynx is moist. There is some erythema far posteriorly with some cobblestoning and more linear irritation.. No cervical lymphadenopathy. Abdomen is soft. Little sore to palpation generally. Well-perfused peripherally. Const: Vital Signs, click to edit/add: Vital Signs - 24 hr 09/26/24 18:37 09/26/24 20:55 Temperature 99.2 F 99.2 F Pulse Rate [Pulse Oximeter] 88 79 Respiratory Rate 20 19 Blood Pressure [Ri ght Upper Arm] 131/84 123/92 H Pulse Oximetry 96 98 Oxygen Delivery Me thod Room Air Room Air Documenting provider has reviewed patient's vital signs: yes Course Vital Signs Vital signs: Initial Vital Signs Temperature 99.2 F 09/26/24 18:37 Temperature Source Oral 09/26/24 18:37 Pulse Rate 88 09/26/24 18:37 Respiratory Rate 20 09/26/24 18:37 Blood Pressure 131/84 09/26/24 18:37 Blood Pressure Mean 99 09/26/24 18:37 Blood Pressure Position Sitting 09/26/24 18:37 Pulse Oximetry 96 09/26/24 18:37 Oxygen Delivery Method Room Air 09/26/24 18:37 Vital Signs Temperature 99.2 F 09/26/24 18:37 Pulse Rate 88 09/26/24 18:37 Respiratory Rate 20 09/26/24 18:37 Blood Pressure 131/84 09/26/24 18:37 Pulse Oximetry 96 09/26/24 18:37 Oxygen Delivery Method Room Air 09/26/24 18:37 Temperature 99.2 F 09/26/24 20:55 Pulse Rate 79 09/26/24 20:55 Respiratory Rate 19 09/26/24 20:55 Blood Pressure 123/92 H 09/26/24 20:55 Pulse Oximetry 98 09/26/24 20:55 Oxygen Delivery Method Room Air 09/26/24 20:55 Medical Decision Making MDM Narrative Medical decision making narrative: Vitals are reassuring. Otherwise reporting improvement. I do not think requires evaluation be on the COVID/influenza swab which has already been collected. This is positive for COVID. This certainly can explain his symptoms. As he is already improving I do not think I would recommend Paxlovid at this time. He did have some questions about potential dehydration. Did give him some orange juice and applesauce here in the emergency department. Managed to keep that down but stopped after brief intake. We had discussed potential IV but it seems he thinks he will continue to improve See patient discharge plan for further discussion Continue to focus on small frequent amounts of fluid intake. Could certainly supplement with reconstituted Gatorade or maybe Powerade. I would still recommend 10 days of quarantine from 1st day of symptoms. Consider clearing yourself with negative home antigen testing. Return for intractable vomiting, marked increase in abdominal pain or chest pain, persistent increasing shortness of breath. Medical Records Medical records reviewed: Yes I reviewed the patient's medical records Lab Data Lab results reviewed: Yes I reviewed the patient's lab results Labs: Lab Results 09/26/24 Range/Units 18:40 SARS-CoV-2 (PCR) POSITIVE SARS-CoV-2 A (Negative) Influenza Type A (PCR) Negative PCR FLU A (Negative) Influenza Type B (PCR) Negative PCR FLU B (Negative) RSV (PCR) Negative PCR RSV (Negative) Discharge Plan Discharge Clinical Impression: COVID-19, Dehydration Patient Disposition: Home w/ Parent or Adult Condition: Improved Additional Instructions: Continue to focus on small frequent amounts of fluid intake. Could certainly supplement with reconstituted Gatorade or maybe Powerade. I would still recommend 10 days of quarantine from 1st day of symptoms. Consider clearing yourself with negative home antigen testing. Return for intractable vomiting, marked increase in abdominal pain or chest pain, persistent increasing shortness of breath. Prescriptions: No Action eszopiclone [Lunesta] 2 mg tablet 2 mg PO QHS Qty: 90 2RF Follow Up/Referrals: Calderon Adams MD [Primary Care Provider, Internal Medicine] Stand Alone Forms: [employer] Info Instructions
[2024-09-26 20:55] VITALS: BP 123/92; PULSE 79; RESP 19; TEMP 37.3; O2SAT 98
== END 2024-09-26 22:55 | disposition home or self-care (01) ==
PROVIDERS: Emergency Provider Family Medicine; PCP Internal Medicine
DX: U07.1 COVID-19 (principal); E86.0 Dehydration
CPT/HCPCS: 87631; 99283

== ENCOUNTER 2025-01-30 07:23 | Day surgery (SDC) | payer OTHER, SELFPAY ==
[2025-01-30] VITALS (13 sets, daily range): BP systolic 111–137; BP diastolic 72–80; PULSE 73–100; RESP 12–20; TEMP 36.1–37.1; O2SAT 93–96; BMI 32.2; BMI 32.1
--- OUTSIDE RECORDS SUMMARY | 2025-01-30 07:27 | XMS_ITS | Clinical Summary ---
Author Organization [facility] Address [address] [address] Care Team Providers Care Research Program Internship Name Role Phone Calderon Adams MD Primary Care Provider [phone] Source Comments You are receiving this document as you are listed as the primary care provider,follow-up provider, or the patient has been referred to you for consultation.This is in compliance with the Medicare and[facility] EHR Incentive Program,which states Providers who transition their patient to another setting of careor provider of care or refers their patient to another provider of care shouldprovide summary care record for each transition of care or referral. [facility] Allergies No known active allergies Medications MedicationSigDispense QuantityRefillsLast FilledStart DateEnd DateStatus eszopiclone (LUNESTA) 2 MG tablet Take 1 Tablet (2 mg) by mouth at bedtime as needed.5Active tiZANidine (ZANAFLEX) 4 MG tablet Indications:Lumbar pain,Foraminal stenosis of cervical region,Spondylolisthesis of lumbar region,Lumbar radiculopathyTake 0.5-1 Tablets (2-4 mg) by mouth two times daily as needed. 40 Tablet 5Active tiZANidine (ZANAFLEX) 4 MG tablet Take 0.5-1 Tablets (2-4 mg) by mouth two times daily as needed. 40 Tablet Discontinued(*Med change OR same med OR reorder, new dose/directions) Active Problems ProblemNoted DateDiagnosed DateLumbar ceaywmzzzeo85/12/2025 Encounters DateTypeDepartmentCare DwkcRggnarcysna26/01/2025 10:00 AM CDT - 11/16/2024 10:30 AM CDTSurgery [facility] [address] [place] [address] Kallie Cota MD TRANSFORAMINAL lumbar EPIDURAL Injection L5/S1-Right11/16/2024 9:07 AM CDT - 11/16/2024 10:33 AM CDTHospital Encounter [facility] [address] [place] [address] Kallie Cota MD Lumbar radiculitis Discharge Disposition: Home11/16/2024 7:45 AM CDTAncillary Procedure [facility] [address] [place] [address] Ron Madrigal MD Lumbar xubgpvizgrf01/01/2025Notes/Orders [facility] [address] [place] [address] Kallie Cota MD Follow-up examination (Primary Dx)from Last 3 Months Social History Tobacco UseTypesPacks/DayYears UsedDateSmoking Tobacco: Never AssessedSex and Gender InformationValueDate RecordedSex Assigned at BirthNot on fileLegal Sex Male09/02/2022 9:15 PM CDTGender IdentityNot on fileSexual OrientationNot on file Last Filed Vital Signs Vital SignReadingTime TakenCommentsBlood Tvbutswk315/8811/16/2024 9:13 AM CDT Unbuz377011/16/2024 9:13 AM TBMBexeibzrtyx70.1 ??C (97 ??F)11/16/2024 9:13 AM CDT Respiratory Eubn5131 9:13 AM CDTOxygen Bnrpzdvlsu09%11/16/2024 9:13 AM CDTInhaled Oxygen Concentration--Weight--Height--Body Mass Index-- Plan of Treatment Health MaintenanceDue DateLast DoneCommentsHep C Screening (Preventive Services) 1985HIV Screening (Preventive Services)2001Adult Preventive Visit 04/26/2003HepB Vaccine (1)2004DTaP/Tdap/Td Vaccine (2 - Tdap)04/17/2020 04/17/20108499Ogaymegqzma20/10/2021OVID-19 Vaccine (2 - season)2024 06/19/2021Influenza Vaccine (#1)510/, 11/22/2015, 01/05/2014, Additional history existsZoster/Shingles Vaccine (1 of 2)04/26/2035HPV Vaccine (No Doses Required)CompletedHepA VaccineAged OutNo longer eligible based on patient's age to complete this topicHib VaccineAged OutNo longer eligible based on patient's age to complete this topicIPV (Polio) VaccineAged OutNo longer eligible based on patient's age to complete this topicMCV4 VaccineAged OutNo longer eligible based on patient's age to complete this topicMeningococcal B VaccineAged OutNo longer eligible based on patient's age to complete this topic Pneumococcal VaccineAged OutNo longer eligible based on patient's age to complete this topic Procedures Procedure NamePriorityDate/TimeAssociated DiagnosisCommentsINTERVENTIONAL PAIN ANJDIWDJQIqoeciz12/01/2025 10:24 AM CDT Lumbar radiculitis INJECTION, SPINE, LUMBAR, EPIDURAL, TRANSFORAMINAL DCOSHMXUIKKX09/01/2025 10:07 AM CDT Lumbar radiculitis Case Notes TRANSFORAMINAL lumbar EPIDURAL Injection L5/S1-Right from Last 3 Months Results * Interventional Pain Procedure (11/16/2024 10:24 AM CDT)Anatomical Region LateralityModalityX-Ray AngiographySpecimen (Source)Anatomical Location / LateralityCollection Method / VolumeCollection TimeReceived Time Narrative 11/16/2024 10:24 AM CDT This is an imaging order that has been read externally. Authorizing ProviderResult TypeResult StatusIsaac T Marsolek MDRAD GDFinal Result from Last 3 Months Insurance Care Teams Team MemberRelationshipSpecialtyStart DateEnd Calderon Adams MD [address] [place] [address] PCP - Mvpjmcz18/1/25
--- NOTE | 2025-01-30 08:18 | CRLHL7_ITS ---
For Patients: As a result of the Century Cures Act, medical imaging exams and procedure reports are released immediately into your electronic medical record. You may view this report before your referring provider. If you have questions, please contact your health care provider. INDICATION: Right lower quadrant abdominal pain COMPARISON: Portions of an MRI dated August 27, 2023 TECHNIQUE: CT examination of the abdomen and pelvis was performed following the uneventful intravenous administration of 122 cc of Isovue 370. Thin section axial images were obtained from the lung bases through the pubic symphysis. Oral contrast was not administered. Please note that all CT scans at this facility use dose modulation, iterative reconstruction, and/or weight-based dosing when appropriate to reduce radiation dose to as low as reasonably achievable. FINDINGS: LUNG BASES: Bibasilar subsegmental atelectasis.Heart size normal the lung bases. LIVER/BILIARY SYSTEM:Hepatic steatosis. Mass in the right lobe of the liver measuring 2.7 centimeters. A 2nd mass in the right lobe of the liver measuring 3.8 centimeters. These are characterized as hemangiomas on the prior MRI and are unchanged. These do not require further evaluation. No biliary ductal dilation noted. Gallbladder is surgically absent. ADRENALS: Normal KIDNEYS, URETERS and BLADDER:The kidneys appear normal. No visible mass, calculus or hydronephrosis. The ureters and bladder as visualized appear normal. SPLEEN:Normal appearance. PANCREAS: Appears normal. RETROPERITONEUM and MESENTERY: There is no mass, adenopathy or aortic aneurysm. GASTROINTESTINAL SYSTEM: Appendix is dilated and inflamed containing appendicoliths. Mild surrounding fluid and inflammation. No collection or free air. Elsewhere, colonic fecal retention and diverticulosis. No diverticulitis, colitis or obstruction. Small bowel and stomach as visualized appear normal. PELVIS: No mass, adenopathy or free fluid. OSSEOUS STRUCTURES and ABDOMINAL WALL: There is an age-appropriate appearance of the osseous structures.No significant abdominal wall defect. OTHER: No free fluid or free air. IMPRESSION: 1. Acute uncomplicated appendicitis. 2. Hepatic masses unchanged which represent hemangiomas based on review of an MRI dated August 27, 2023 3. Other nonacute appearing findings as above Please note that all CT scans at this facility use dose modulation, iterative reconstruction, and/or weight-based dosing when appropriate to reduce radiation dose to as low as reasonably achievable. Dictated by Poli Sanchez MD @ 01/30/2025 9:16:27 AM (Electronically Signed)
[2025-01-30] MEDS: 0.9 % SODIUM CHLORIDE 500 ML 500 ML IV (08:30)
--- NOTE | 2025-01-30 08:33 | ED_ITS ---
HPI - General Adult General Date Seen: 01/30/25 Chief complaint: Abdominal Pain Stated complaint: Possible appendicitis Time Seen by Provider: 01/30/25 08:05 History of Present Illness HPI narrative: Patient is a 39-year-old here for evaluation of abdominal pain which started yesterday. More generalized yesterday but is localized to the right lower quadrant today. Associated with some nausea but no vomiting, stools have been a little loose, no bloody stools. No fevers. No urinary symptoms. Has not had much of an appetite yesterday or today. No history of similar pain. Status post cholecystectomy last year. Generally otherwise healthy. Does not smoke, drinks occasionally. Related Data Home Medications ?Medication ?Instructions ?Recorded ?Confirmed amoxicillin 500 mg capsule 500 mg PO QID 01/30/2501/16 cholecalciferol (vitamin D3) 125 125 mcg PO DAILY 01/1601/30/25 mcg (5,000 unit) capsule tizanidine 4 mg tablet 2 - 4 mg PO BID PRN 01/30/25 01/30/25 Previous Rx's ?Medication ?Instructions ?Recorded eszopiclone 2 mg tablet (Lunesta) 2 mg PO QHS #90 tabs 12/27/24 Allergies Allergy/AdvReac Type Severity Reaction Status Date / Time No Known Drug Allergies Allergy Verified 01/30/25 07:31 Review of Systems Status of ROS: Reports: 10 or more systems reviewed and unremarkable except as noted in History and below [facility] Medical History (Updated 01/30/25 @ 11:03 by Bridgette Dave MD) Low back pain ?M54.50 - Low back pain, unspecified (ICD-10) Skin lesion ?L98.9 - Disorder of the skin and subcutaneous tissue, unspecified (ICD-10) Insomnia ?G47.00 - Insomnia, unspecified (ICD-10) Chronic tension headaches ?G44.229 - Chronic tension-type headache, not intractable (ICD-10) Rotator cuff insufficiency of left shoulder ?M25.312 - Other instability, left shoulder (ICD-10) Cervical spine pain ?M54.2 - Cervicalgia (ICD-10) Liver lesion ?K76.9 - Liver disease, unspecified (ICD-10) Surgical History History of peritonsillar abscess drainage ?Z98.890 - Other specified postprocedural states (ICD-10) Status post cholecystectomy (10/20/23) ?Z90.49 - Acquired absence of other specified parts of digestive tract (ICD- 10) History of removal of skin mole (10/04/10) ?Z98.890 - Other specified postprocedural states (ICD-10) ?Z87.2 - Personal history of diseases of the skin and subcutaneous tissue (ICD-10) History of vasectomy ?Z98.52 - Vasectomy status (ICD-10) Family History (Updated 01/30/25 @ 10:19 by Maribel Null MD) Other Diabetes Social History (Updated 01/30/25 @ 10:19 by Maribel Null MD) Narrative: 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 He does not smoke. He drinks minimal alcohol. What is your current living situation?: I presently have a place to live Problems where you live: no known problems In the past 12 months, utilities in danger of being shut off: no In past 12 months, lack of transportation kept you from medical appts, meetings, work, or getting things needed for daily living: no In the past 12 mos, have been you worried that your food would run out before you had money to buy more?: never true In the past 12 mos, the food you bought just didn't last and you didn't have money to buy more?: never true Smoking Status: Former smoker What tobacco products do you use: cigarettes Smoking quit date/years: <= 15 years ago Do you use any of these nicotine containing products: None Nicotine containing products detail: quit smoking 10 years ago, quit Chew 1 year ago How often do you have a drink containing alcohol: 2-4 times a month Alcohol type: beer and hard liquor How many standard drinks containing alcohol do you have on a typical day: 1 or 2 How often do you have six or more drinks on one occasion: Never AUDIT-C Alcohol total score: 2 Non-prescribed substance use: marijuana (any form) Non-prescribed substance use details: THC gummies occasionally Caffeine: Yes (2 coffee/day 1 pop/day) How often does anyone, including family, friends and others, physically hurt you : never How often does anyone, including family, friends and others, insult or talk down to you: never How often does anyone, including family, friends and others, threaten you with harm: never How often does anyone, including family, friends and others, scream or curse at you: never service: No Exam Narrative: Exam Narrative: Vital signs reviewed In general, an alert, nontoxic Head: Normocephalic, atraumatic. Eyes: Sclera clear. Pupils equal and reactive. ENT: Mucous membranes moist. Neck: Supple without adenopathy. Heart: Regular rate and rhythm without murmur. Lungs: Clear. No increased work of breathing, crackles or wheezes. Abdomen: Abdomen is soft, isolated right lower quadrant tenderness with some guarding but no rebound. Bowel sounds are quiet. Extremities: Well perfused, pulses intact. No significant edema. Neurologic: Alert, conversant. Speech fluent, face symmetric. Moves all extremities equally. Skin: Warm, dry well perfused. Affect: Normal. Const: Vital Signs, click to edit/add: Vital Signs - 24 hr 01/30/25 07:24 01/30/25 10:27 Temperature 98.1 F 98.7 F Pulse Rate 81 Pulse Rate [Pulse Oximeter] 100 Respiratory Rate 16 16 Blood Pressure 126/76 Blood Pressure [Ri ght Upper Arm] 137/79 Pulse Oximetry 95 94 Oxygen Delivery Me thod Room Air Room Air Course Course ED Course: Patient presents with abdominal pain, history and exam are suggestive of appendicitis, other diagnostic considerations would include bowel obstruction, kidney stone, urinary tract infection, diverticulitis, pancreatitis, hepatitis, choledocholithiasis, among others. Labs ordered, will give some Toradol, he does not want any stronger pain medications. Will do CT scan of the abdomen as well. I reviewed his CT scan, appendix is dilated with some periappendiceal inflammation. Consistent with acute appendicitis. Labs are [place] [address]. Remainder of labs pending at the time of this dictation aside from UA which was negative. Discussed with General surgery who evaluated the patient as well. He will go to the OR a couple of hours for appendectomy. Maintained NPO in the ER. diagnosis: Acute appendicitis Vital Signs Vital signs: Initial Vital Signs Temperature 98.1 F 01/30/25 07:24 Temperature Source Temporal Artery Scan 01/30/25 07:24 Pulse Rate 100 01/30/25 07:24 Respiratory Rate 16 01/30/25 07:24 Blood Pressure 137/79 01/30/25 07:24 Blood Pressure Mean 98 01/30/25 07:24 Pulse Oximetry 95 01/30/25 07:24 Oxygen Delivery Method Room Air 01/30/25 07:24 Vital Signs Temperature 98.1 F 01/30/25 07:24 Pulse Rate 100 01/30/25 07:24 Respiratory Rate 16 01/30/25 07:24 Blood Pressure 137/79 01/30/25 07:24 Pulse Oximetry 95 01/30/25 07:24 Oxygen Delivery Method Room Air 01/30/25 07:24 Temperature 98.7 F 01/30/25 10:27 Pulse Rate 81 01/30/25 10:27 Respiratory Rate 16 01/30/25 10:27 Blood Pressure 126/76 01/30/25 10:27 Pulse Oximetry 94 01/30/25 10:27 Oxygen Delivery Method Room Air 01/30/25 10:27 Medications Administered Medications: Discontinued Medications Generic Name Dose Route Start Last Admin Trade Name Freq PRN Reason Stop Dose Admin Sodium Chloride 500 mls @ 500 mls/hr 01/30/25 08:16 01/30/25 09:23 0.9 % Sodium Chloride 500 Ml IV 01/30/25 09:15 Infused .Q1H ONE Infusion Ketorolac Tromethamine 15 mg 01/30/25 08:16 01/30/25 08:29 Ketorolac 15 Mg/Ml Inj IVP 01/30/25 08:17 15 mg ONCE ONE Administration Medical Decision Making Lab Data Labs: Lab Results 01/30/25 01/30/25 Range/Units 08:25 09:18 WBC 13.21 H (4.50-11.00) K/uL RBC 5.26 (4.30-5.90) m/uL Hgb 16.2 (13.5-17.5) gm/dL Hct 47.1 (37.0-53.0) % MCV 90 (80-100) fL MCH 31 (26-34) pg MCHC 34 (32-36) gm/dL RDW Coeff of Zia 12.0 (11.5-15.5) % Plt Count 240 (140-440) K/uL Neut % (Auto) 81.7 H (42.0-72.0) % Lymph % (Auto) 11.5 L (20-44) % [place] % (Auto) 5.7 (0.0-11.0) % Eos % (Auto) 0.8 (0.0-7.0) % Baso % (Auto) 0.2 (0.0-3.0) % Neut # (Auto) 10.80 H (1.7-7.0) K/uL Lymph # (Auto) 1.50 (0.90-2.90) K/uL [place] # (Auto) 0.80 (0.00-0.90) K/UL Eos # (Auto) 0.10 (0.00-0.50) K/uL Baso # (Auto) 0.00 (0.00-0.30) K/uL Abs Immat Gran (auto) 0.00 (0.00-0.30) K/uL Imm/Tot Granulo (auto) 0.1 % Urine Color Yellow (Yellow) Urine Appearance Clear (Clear) Urine pH 6.0 (5.0-8.5) Ur Specific [place] 1.010 (1.000-1.030) Urine Protein Negative (Negative) Urine Glucose (UA) Negative (Negative) Urine Ketones Negative (Negative) Urine Blood Negative (Negative) Urine Nitrite Negative (Negative) Urine Bilirubin Negative (Negative) Urine Urobilinogen 0.2 (0.2-1.0) Ur Leukocyte Esterase Negative (Negative) Urine RBC 0-2 (0-2) Urine WBC 0-2 (0-5) Ur Squamous Epith Cells None (None-Few) Urine Bacteria None (None) Imaging Data CT scan - abdomen: Attestation: I have reviewed the pertinent imaging results. Radiologist's impression: Patient: KIT CRISTINA Facility: [facility] . Site : 1985 Study: CT-Abdomen/Pelvis W/IV-01/30/2025 9:08:52 AM Ordering Physician: Tenzin Angeles Final Report: INDICATION: Right lower quadrant abdominal pain COMPARISON: Portions of an MRI dated August 27, 2023 TECHNIQUE: CT examination of the abdomen and pelvis was performed following the uneventful intravenous administration of 122 cc of Isovue 370. Thin section axial images were obtained from the lung bases through the pubic symphysis. Oral contrast was not administered. Please note that all CT scans at this facility use dose modulation, iterative reconstruction, and/or weight-based dosing when appropriate to reduce radiation dose to as low as reasonably achievable. FINDINGS: LUNG BASES: Bibasilar subsegmental atelectasis.Heart size normal the lung bases. LIVER/BILIARY SYSTEM:Hepatic steatosis. Mass in the right lobe of the liver measuring 2.7 centimeters. A 2nd mass in the right lobe of the liver measuring 3.8 centimeters. These are characterized as hemangiomas on the prior MRI and are unchanged. These do not require further evaluation. No biliary ductal dilation noted. Gallbladder is surgically absent. ADRENALS: Normal KIDNEYS, URETERS and BLADDER:The kidneys appear normal. No visible mass, calcu crystal or hydronephrosis. The ureters and bladder as visualized appear normal. SPLEEN:Normal appearance. PANCREAS: Appears normal. RETROPERITONEUM and MESENTERY: There is no mass, adenopathy or aortic aneurysm. GASTROINTESTINAL SYSTEM: Appendix is dilated and inflamed containing appendicoliths. Mild surrounding fluid and inflammation. No collection or free air. Elsewhere, colonic fecal retention and diverticulosis. No diverticulitis, colitis or obstruction. Small bowel and stomach as visualized appear normal. PELVIS: No mass, adenopathy or free fluid. OSSEOUS STRUCTURES and ABDOMINAL WALL: There is an age-appropriate appearance of the osseous structures.No significant abdominal wall defect. OTHER: No free fluid or free air. IMPRESSION: 1. Acute uncomplicated appendicitis. 2. Hepatic masses unchanged which represent hemangiomas based on review of an MRI dated August 27, 2023 3. Other nonacute appearing findings as above Please note that all CT scans at this facility use dose modulation, iterative reconstruction, and/or weight-based dosing when appropriate to reduce radiation dose to as low as reasonably achievable. Dictated by Poli Sanchez MD @ 01/30/2025 9:16:27 AM Discharge Plan Discharge Clinical Impression: Acute appendicitis Patient Disposition: XFER to OR
[2025-01-30 08:35] LABS: Hematocrit* 47.1 % (37.0-53.0); Hemoglobin* 16.2 gm/dL (13.5-17.5); Immature Granulocytes Pct Auto 0.1 %; Mean Corpuscular HGB Conc 34 gm/dL (32-36); Mean Corpuscular Hemoglobin 31 pg (26-34); Mean Corpuscular Volume 90 fL (80-100); RDW Coefficient of Variation % 12.0 % (11.5-15.5); Red Blood Count* 5.26 m/uL (4.30-5.90); White Blood Count* 13.21 K/uL (4.50-11.00)
[2025-01-30 08:41] LABS: Immature Granulocytes Abs Auto 0.00 K/uL (0.00-0.30); Lymphocytes Absolute Auto 1.50 K/uL (0.90-2.90); Slide Review Reflex No
[2025-01-30 09:27] LABS: Appearance Urine Clear (Clear)
--- NOTE | 2025-01-30 10:12 | PM.GSHP ---
History of Present Illness History of Present Illness Date Seen: 01/30/25 Chief complaint: Possible appendicitis Narrative: Ney Banuelos is a 39 year old male who presents to the ER today with abdominal pain. He states that yesterday mid morning he noticed pain in the middle of his abdomen. It shortly thereafter moved to his right lower quadrant. He states that the pain is worse if you push on his abdomen but belching and passing gas does help somewhat. Certain positions will make the pain better or worse. He has not had any urinary symptoms. He has not had any measurable fevers but his states that he felt clammy yesterday. He did have some nausea but has not vomited. He noted some looser bowel movements yesterday. He last ate last night. [facility] Medical History Skin lesion ?L98.9 - Disorder of the skin and subcutaneous tissue, unspecified (ICD-10) Insomnia ?G47.00 - Insomnia, unspecified (ICD-10) Chronic tension headaches ?G44.229 - Chronic tension-type headache, not intractable (ICD-10) Rotator cuff insufficiency of left shoulder ?M25.312 - Other instability, left shoulder (ICD-10) Cervical spine pain ?M54.2 - Cervicalgia (ICD-10) Liver lesion ?K76.9 - Liver disease, unspecified (ICD-10) Surgical History History of peritonsillar abscess drainage ?Z98.890 - Other specified postprocedural states (ICD-10) Status post cholecystectomy (10/20/23) ?Z90.49 - Acquired absence of other specified parts of digestive tract (ICD-10) History of removal of skin mole (10/04/10) ?Z98.890 - Other specified postprocedural states (ICD-10) ?Z87.2 - Personal history of diseases of the skin and subcutaneous tissue (ICD-10) History of vasectomy ?Z98.52 - Vasectomy status (ICD-10) Family History Other Diabetes Social History Narrative: 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 He does not smoke. He drinks minimal alcohol. What is your current living situation?: I presently have a place to live Problems where you live: no known problems In the past 12 months, utilities in danger of being shut off: no In past 12 months, lack of transportation kept you from medical appts, meetings, work, or getting things needed for daily living: no In the past 12 mos, have been you worried that your food would run out before you had money to buy more?: never true In the past 12 mos, the food you bought just didn't last and you didn't have money to buy more?: never true Smoking Status: Former smoker What tobacco products do you use: cigarettes Smoking quit date/years: <= 15 years ago Do you use any of these nicotine containing products: None Nicotine containing products detail: quit smoking 10 years ago, quit Chew 1 year ago How often do you have a drink containing alcohol: 2-4 times a month Alcohol type: beer and hard liquor How many standard drinks containing alcohol do you have on a typical day: 1 or 2 How often do you have six or more drinks on one occasion: Never AUDIT-C Alcohol total score: 2 Non-prescribed substance use: marijuana (any form) Non-prescribed substance use details: THC gummies occasionally Caffeine: Yes (2 coffee/day 1 pop/day) How often does anyone, including family, friends and others, physically hurt you: never How often does anyone, including family, friends and others, insult or talk down to you: never How often does anyone, including family, friends and others, threaten you with harm: never How often does anyone, including family, friends and others, scream or curse at you: never service: No Meds Home Medications and Allergies Home Medications ?Medication ?Instructions ?Recorded ?Confirmed ?Type eszopiclone 2 mg tablet (Lunesta) 2 mg PO QHS #90 tabs 12/27/24 01/30/25 Rx amoxicillin 500 mg capsule 500 mg PO QID 01/30/25 01/30/25 History cholecalciferol (vitamin D3) 125 125 mcg PO DAILY 01/30/25 01/30/25 History mcg (5,000 unit) capsule tizanidine 4 mg tablet 2 - 4 mg PO BID PRN 01/30/25 01/30/25 History Allergies Allergy/AdvReac Type Severity Reaction Status Date / Time No Known Drug Allergies Allergy Verified 01/30/25 07:31 Exam Narrative: Exam Narrative: General appearance: Alert, cooperative, and in no distress Eyes: PERRLA, eye lids clear, and sclera white HENT Head: Normocephalic Ears: External ears normal Pulmonary: Clear to auscultation bilaterally Cardiovascular Heart: Regular rate and rhythm Extremities: warm and well perfused Gastrointestinal Abdominal: Scars consistent with surgical history. No hernias noted. Patient is tender with rebound and guarding in the right lower quadrant. Musculoskeletal: Extremities: Upper: Both upper extremities have normal joint range of motion and intact strength. Lower: Both lower extremities have normal joint range of motion and intact strength. Skin: Normal skin color, texture, and turgor. Neurologic: No focal deficits Psychiatric: Alert, oriented, cooperative, normal affect. Const: Vital Signs, click to edit/add: Vital Signs - 24 hr 01/30/25 07:24 Temperature 98.1 F Pulse Rate [Pulse Oximeter] 100 Respiratory Rate 16 Blood Pressure [Ri ght Upper Arm] 137/79 Pulse Oximetry 95 Oxygen Delivery Me thod Room Air Results Results Labs: White blood cell count 13.2 Hemoglobin 16.[address] scan report/results: report reviewed and image reviewed Additional studies: Ordering Physician: Bridgette Dave M.D. Date of Service: 01/30/25 Procedure(s): CT abdomen pelvis w con Accession Number(s): [id number] cc: Bridgette Dave M.D.; Calderon Adams M.D.~ For Patients: As a result of the Century Cures Act, medical imaging exams and procedure reports are released immediately into your electronic medical record. You may view this report before your referring provider. If you have questions, please contact your health care provider. INDICATION: Right lower quadrant abdominal pain COMPARISON: Portions of an MRI dated August 27, 2023 TECHNIQUE: CT examination of the abdomen and pelvis was performed following the uneventful intravenous administration of 122 cc of Isovue 370. Thin section axial images were obtained from the lung bases through the pubic symphysis. Oral contrast was not administered. Please note that all CT scans at this facility use dose modulation, iterative reconstruction, and/or weight-based dosing when appropriate to reduce radiation dose to as low as reasonably achievable. FINDINGS: LUNG BASES: Bibasilar subsegmental atelectasis.Heart size normal the lung bases. LIVER/BILIARY SYSTEM:Hepatic steatosis. Mass in the right lobe of the liver measuring 2.7 centimeters. A 2nd mass in the right lobe of the liver measuring 3.8 centimeters. These are characterized as hemangiomas on the prior MRI and are unchanged. These do not require further evaluation. No biliary ductal dilation noted. Gallbladder is surgically absent. ADRENALS: Normal KIDNEYS, URETERS and BLADDER:The kidneys appear normal. No visible mass, calculus or hydronephrosis. The ureters and bladder as visualized appear normal. SPLEEN:Normal appearance. PANCREAS: Appears normal. RETROPERITONEUM and MESENTERY: There is no mass, adenopathy or aortic aneurysm. GASTROINTESTINAL SYSTEM: Appendix is dilated and inflamed containing appendicoliths. Mild surrounding fluid and inflammation. No collection or free air. Elsewhere, colonic fecal retention and diverticulosis. No diverticulitis, colitis or obstruction. Small bowel and stomach as visualized appear normal. PELVIS: No mass, adenopathy or free fluid. OSSEOUS STRUCTURES and ABDOMINAL WALL: There is an age-appropriate appearance of the osseous structures.No significant abdominal wall defect. OTHER: No free fluid or free air. IMPRESSION: 1. Acute uncomplicated appendicitis. 2. Hepatic masses unchanged which represent hemangiomas based on review of an MRI dated August 27, 2023 3. Other nonacute appearing findings as above Please note that all CT scans at this facility use dose modulation, iterative reconstruction, and/or weight-based dosing when appropriate to reduce radiation dose to as low as reasonably achievable. Dictated by Poli Sanchez MD @ 01/30/2025 9:16:27 AM Progress Note:A&P Assessment and plan (1) Acute appendicitis: Status: Acute Plan The patient is a 39-year-old male with acute appendicitis. We discussed that appendectomy is the preferred treatment for this. This can most often be done laparoscopically. We discussed risks and benefits of the procedure including but not limited to bleeding, need for conversion to open, risk of injury to other structures, need for possible bowel resection, and abscess formation. The patient understands that the risk of abscess is higher if the appendix is perforated. For that reason, we generally keep patient is in the hospital on IV antibiotics until vital signs and white blood cell count had normalized. We also discussed recovery including 2 weeks of lifting restrictions. He is agreeable to proceed and signed informed consent. We will plan on surgery this morning upon OR availability.
[2025-01-30] MEDS: PIPERACILLIN/TAZOBACTAM 3.375 GM INJ IVPB (11:45)
--- NOTE | 2025-01-30 11:57 | P.ANES_ITS ---
Anesthesia Charges Start Date/Time Anesthesia Start Date: 01/30/25 Anesthesia Start Time: 11:38 Stop Date/Time Anesthesia Stop Date: 01/30/25 Anesthesia Stop Time: 12:30 Coding CPT Codes CPT Codes: ANESTH SURG LOWER ABDOMEN - 50235 ([id number]) P2 - PATIENT W/MILD SYST DISEASE, QK - TELEVISION JOURNALIST 2-4 CNCRNT ANES PROC, QX - SOLDER DEPOSIT OPERATOR SVC W/ MD MED DIRECTION
--- NOTE | 2025-01-30 11:57 | W.ANESCHARGE ---
Anesthesia Charges Start Date/Time Anesthesia Start Date: 01/30/25 Anesthesia Start Time: 11:38 Stop Date/Time Anesthesia Stop Date: 01/30/25 Anesthesia Stop Time: 12:30 Coding CPT Codes CPT Codes: ANESTH SURG LOWER ABDOMEN - 87659 ([id number]) P2 - PATIENT W/MILD SYST DISEASE, QK - NEWS VIDEO EDITOR 2-4 CNCRNT ANES PROC, QX - ELECTRICAL DESIGNER SVC W/ MD MED DIRECTION
[2025-01-30] MEDS: BUPIVACAINE 0.25% 30 ML INJECTION (12:15)
[2025-01-30] MEDS: LACTATED RINGERS 1000 ML 1,000 ML 100 ML IV ×2 (12:30→13:00)
--- NOTE | 2025-01-30 12:30 | SUR.OPER ---
Superficial skin layer removed secondary to removing the drape from his abdomen (bilateral and proximal areas) and from removing the grounding pad from his left lateral thigh (no blood seen at the time of this writing).
--- NOTE | 2025-01-30 12:32 | P.GSOP_ITS ---
Operative Note Date of procedure: 01/30/25 Pre-op diagnosis: Acute appendicitis Post-op diagnosis: Same Type of Procedure: Laparoscopic appendectomy Indications: The patient is a 39-year-old male who presented to the emergency department with abdominal pain. He was found to have acute appendicitis. I recommended appendectomy and after discussion of risks and benefits, he agreed to proceed. Procedure Description: After discussing the risks and benefits of the procedure, the patient signed informed consent.? The operative site was marked and the patient was brought to the operating room and placed on the operating table in supine position.? Care was taken to pad the patient's pressure points.?? The patient was then intubated by anesthesia.?? The operative site was then prepped and draped in the usual sterile fashion.? A time-out was then performed. Entrance to the abdomen was obtained via a 5 mm optical trocar in the left upper quadrant. The abdomen was insufflated and briefly surveyed for any signs of injury. There were none. A 12 mm port was placed through the patient's prior umbilical scar just above the umbilicus as well as a 5 mm port in the left lower quadrant. Both were done under direct vision. The patient was then placed in Trendelenburg position with the right side up. The small bowel was gently moved out of the way and the appendix was in view. A small amount of dissection was necessary to free the appendix from the surrounding pelvic attachments. The lucy endix was dilated and inflamed, however there was no evidence of rupture or purulence. The appendix was grasped and pulled into view. A mesenteric window was created between the base of the appendix and the mesoappendix. An Endo-CHARLY purple load stapler was then used to transect the appendix at its base. A vascular load stapler was then used to divide the mesoappendix. The staple lines were inspected for bleeding. There was none. The appendix was then removed from the abdomen using an Endo-Catch bag. The specimen was sent to pathology. The ports were then removed and the abdomen desufflated. The 12 mm port site fascia was closed with 0 Vicryl. The skin was then closed with absorbable subcuticular suture. Sterile dressings were then applied. Instrument sponge and needle counts were correct at the end of the case. The patient was then woken and transported to the PACU in stable condition. The patient tolerated the procedure well. Findings: Acute non perforated appendicitis Surgeon: Maribel Null MD Estimated blood loss (mL): 10 Specimen: Appendix Condition: stable Disposition: PACU
--- NOTE | 2025-01-30 12:41 | P.ANES_ITS ---
Anesthesia Charges Start Date/Time Anesthesia Start Date: 01/30/25 Anesthesia Start Time: 11:38 Stop Date/Time Anesthesia Stop Date: 01/30/25 Anesthesia Stop Time: 12:30 Coding CPT Codes CPT Codes: ANESTH SURG LOWER ABDOMEN - 33347 ([id number]) P2 - PATIENT W/MILD SYST DISEASE, QK - CEMENT MASON 2-4 CNCRNT ANES PROC, QX - BUILDING INSULATION SUPERVISOR SVC W/ MD MED DIRECTION
--- NOTE | 2025-01-30 12:41 | W.ANESCHARGE ---
Anesthesia Charges Start Date/Time Anesthesia Start Date: 01/30/25 Anesthesia Start Time: 11:38 Stop Date/Time Anesthesia Stop Date: 01/30/25 Anesthesia Stop Time: 12:30 Coding CPT Codes CPT Codes: ANESTH SURG LOWER ABDOMEN - 57432 ([id number]) P2 - PATIENT W/MILD SYST DISEASE, QK - DISPATCHER SERVICE 2-4 CNCRNT ANES PROC, QX - FORESTRY ADVISER SVC W/ MD MED DIRECTION
[2025-01-30] MEDS: HYDROCODONE-ACETAMIN 5-325 MG 1 TAB PO (13:19)
[2025-01-31 02:02] LABS: Albumin* 4.4 g/dL (3.3-5.0); Chloride* 102 mmol/L (96-114); Sodium* 135 mmol/L (135-149)
[2025-01-31 02:03] LABS: Potassium* 4.3 mmol/L (3.6-5.1)
[2025-01-31 02:05] LABS: Blood Urea Nitrogen* 14 mg/dL (5-24); Creatinine* 1.0 mg/dL (0.5-1.5); Est. Creatinine Clearance* 115.31; Estimated Glomerular Filt Rate 98 ml/min
[2025-01-31 02:06] LABS: Alanine Aminotransferase* 56 U/L (4-50); Alkaline Phosphatase* 67 U/L (40-150); Anion Gap 6 mEq/L (7-15); Aspartate Amino Transferase* 33 U/L (12-35); Bilirubin Direct* 0.3 mg/dL (0.0-0.5); Bilirubin Total* 1.4 mg/dL (0.1-1.5); Calcium* 9.5 mg/dL (8.4-10.6); Carbon Dioxide* 27 mmol/L (20-32); Glucose* 109 mg/dL (60-115); Total Protein* 7.5 g/dL (6.0-8.3)
== END 2025-01-30 14:20 | disposition home or self-care (01) ==
LOC: ED 09:28 → SS 10:11
PROVIDERS: Emergency Provider Emergency Medicine; PCP Internal Medicine; Visit Provider Surgery
PROC: 0DTJ4ZZ Resection of Appendix, Percutaneous Endoscopic Approach (ICD-10-PCS; CPT 44970; principal; 2025-01-30 11:45)
DX: K35.80 Unspecified acute appendicitis (principal)
CPT/HCPCS: 44970; 00840; 36415; 74177; 80048; 80076; 81001; 85025; 86140; 99284; 99285; A9270; J0330; J0665; J1100; J1885; J2250; J2371; J2405; J2543; J2704; J3010; J3490; J7030; J7120; Q9967